=== PATIENT | male | born 1980 | race Caucasian/White ===

== ENCOUNTER 2020-06-04 16:55 | Emergency (ER) | payer BC, SELFPAY ==
[2020-06-04 17:15] VITALS: BP 116/85; PULSE 62; RESP 16; TEMP 36.4; O2SAT 100
--- NOTE | 2020-06-04 17:36 | ED.GENADULT ---
HPI - General Adult General Chief complaint: Shortness of Breath/Dyspnea Stated complaint: Alergic Reaction Time Seen by Provider: 06/04/20 17:36 Source: patient and RN notes reviewed Mode of arrival: ambulatory Limitations: no limitations History of Present Illness HPI narrative: 39-year-old male presents with complaints of asthma problems related to cat allergy for the past 2 months. Donell reports 3 months he obtained a cat for his children and initially he had no problems but over the past 2 months the cat dander has been causing problems with his asthma. Symptoms increased today with increase intermittent wheezing, sneezing, watery and itchy eyes, shortness of breath and he ran out of medication. Albuterol inhaler with relief and Yasmin with some relief. Denies difficulty swallowing and edema. No facial swelling. Denies fever, headaches, myalgia, facial swelling, or tongue swelling. Denies chest pain, nausea, vomiting, dizziness, or lightheadedness. Tolerating po intake well. Remains active. The patient reports he have not been diagnosed with COVID-19. The patient reports he is not waiting for the results of a COVID-19 lab test. The patient reports he do not have chills, weakness, or fatigue. The patient reports he do not have a new or worsening cough. Denies chest pain. The patient reports he do not have any rhinorrhea, congestion, loss of taste, sore throat, abdominal pain, and diarrhea. Denies recent traveling. Denies concerns for COVID-19 or exposures been home with limited outdoor exposure except for essential household needs, work, and return home. At this time, patient is not suspected of having COVID-19. Some parts of this dictation were generated by voice recognition software and may contain typographical and/or grammatical inaccuracies. Related Data Allergies Allergy/AdvReac Type Severity Reaction Status Date / Time Penicillins Allergy Intermediate Swelling Verified 06/04/20 17:11 shellfish derived Allergy Unknown Hives Verified 06/04/20 17:05 cat dander Allergy Wheezing Verified 06/04/20 17:11 Review of Systems Review of Systems: Narrative: CONSTITUTIONAL: Denies fever, chills, sweats. EYES: Denies visual changes, redness, discharge. ENT: Denies rhinorrhea, congestion, sore throat, otalgia. Complains of intermittent sneezing, watery and itchy eyes. CARDIOVASCULAR: Denies chest pain, palpitations, edema. RESPIRATORY: Denies cough. Complains of intermittent wheezing, dyspnea. GASTROINTESTINAL: Denies abdominal pain, nausea, vomiting, diarrhea. GENITOURINARY: Denies dysuria, hematuria, abnormal discharge. SKIN: Denies rash or itching. Denies drainage. MUSCULOSKELETAL: Denies acute back pain, joint pain, or myalgia. NEUROLOGIC: Denies numbness or focal weakness. PSYCHIATRIC: Denies anxiety or depression. All systems reviewed & are unremarkable except as noted in HPI and below. [facility] Past Medical History Medical History Allergies Asthma Ex-smoker for more than 1 year Surgical History Surgical History (Updated 06/04/20 @ 18:01 by LES Casillas) History of tonsillectomy Family History Family History (Updated 06/04/20 @ 18:03 by LES Casillas) Father Heart disease History of CABG Mother Asthma Hypertension Social History Social History (Updated 06/04/20 @ 18:04 by LES Casillas) Smoking status: Former smoker Tobacco type: cigarettes Second hand tobacco smoke exposure: No Substance use: never Living arrangements: with family Additional living arrangements comments: spouse and children Occupation/Education: occupation Gender identity (if verbalized by the patient): Male Sexual Orientation (if Verbalized by the Patient): Straight or Heterosexual Comments At time of signature, agree with nurse past medical, surgical, social, and family history. There is relevant patient's past medical history pertinent to the presenting comp
== END 2020-06-04 17:53 | disposition home or self-care (01) ==
PROVIDERS: Emergency Provider Nurse Practitioner Family
DX: J45.901 Unspecified asthma with (acute) exacerbation (principal); Z87.891 Personal history of nicotine dependence
CPT/HCPCS: 99213; G0463

== ENCOUNTER 2021-12-25 09:39 | Emergency (ER) | payer BC, SELFPAY ==
[2021-12-25 09:49] VITALS: BP 123/87; PULSE 76; RESP 16; TEMP 36.1; O2SAT 99
--- NOTE | 2021-12-25 10:12 | ED.HA ---
HPI - Headache General Chief Complaint: Headache Stated Complaint: Migraine Time Seen by Provider: 12/25/21 10:12 Source: patient, RN notes reviewed and old records reviewed Mode of arrival: ambulatory Limitations: no limitations History of Present Illness HPI Narrative: 41 year old male who presents to [facility] with complaints of having migraine headache for the past 2 weeks. Patient states that he has had migraine headaches since he was a child and they have increased in the past 2 months. He reports that he has been taking Ibuprofen and Tylenol daily and he has smoked marijuana which does seem to help his headache pain. Patient denies any sinus pain or nasal congestion or drainage. He reports that his pain is in left anabaptist, behind his left eye and it goes around to the back of his head at times with some nausea at times but no emesis. He states that he has some sensitivity to light but mainly sensitivity is to sound. 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 MD elicited complaint: migraine Pertinent past history: migraines Onset (ago): week(s) (2) Pain scale (0-10): 3 Treatments prior to arrival: acetaminophen and ibuprofen Related Data Allergies Allergy/AdvReac Type Severity Reaction Status Date / Time cat dander Allergy Severe Wheezing Verified 12/25/21 09:41 Penicillins Allergy Intermediate Swelling Verified 12/25/21 09:41 shellfish derived Allergy Unknown Hives Verified 12/25/21 09:41 Review of Systems Review of Systems: CONSTITUTIONAL: Denies fever, chills, or sweats. EYES: Denies visual changes, redness, or discharge. ENT: Denies rhinorrhea, congestion, sore throat, or otalgia. CARDIOVASCULAR: Denies chest pain, palpitations, or edema. RESPIRATORY: Denies cough or dyspnea. GASTROINTESTINAL: Denies abdominal pain,some nausea, denies any vomiting, or diarrhea. GENITOURINARY: Denies dysuria or hematuria. SKIN: Denies rash or itching. MUSCULOSKELETAL: Denies back pain, joint pain, or myalgia. NEUROLOGIC: Positive for headache,left anabaptist, behind left eye and radiation of pain to back of head with some photosphobia and sensitivity to sound.denies any numbness, or weakness. PSYCHIATRIC: Denies anxiety or depression. All systems reviewed & are unremarkable except as noted in HPI and below PMFSH Past Medical History Medical History Allergies Asthma Ex-smoker for more than 1 year Hx of migraines Neck pain Surgical History Surgical History History of tonsillectomy Family History Family History Father Heart disease History of CABG Alcoholism Diabetes mellitus Depression Anxiety Mother Asthma Hypertension Diabetes mellitus Depression Anxiety Grandparent Heart disease Social History Social History Smoking status: Former smoker Tobacco type: cigarettes Second hand tobacco smoke exposure: No Alcohol intake: former Substance use: current Substance use type: marijuana Last use: Former opiate addict clean for 10 years Living arrangements: with family Additional living arrangements comments: spouse and children Gender identity (if verbalized by the patient): Male Sexual Orientation (if Verbalized by the Patient): Straight or Heterosexual Comments At time of signature, agree with nursing past medical, surgical, social and family history. There is no relevant family history pertinent to the presenting complaint Exam Narrative: GENERAL: Pale-appearing, well-nourished, and in no acute distress. HEAD: Normocephalic, atraumatic. EYES: PERRLA and EOMI.no nystagmus ENT: Nares clear, no rhinorrhea or epistaxis. Mucous membranes moist.TM's normal with good light reflex, throat pink with no le
== END 2021-12-25 10:44 | disposition home or self-care (01) ==
PROVIDERS: Emergency Provider Registered Nurse
DX: G43.019 Migraine without aura, intractable, without status migrainosus (principal); Z87.891 Personal history of nicotine dependence; J45.909 Unspecified asthma, uncomplicated
CPT/HCPCS: 99213; G0463

== ENCOUNTER 2022-12-30 08:05 | Outpatient (CLI) | payer BC, SELFPAY ==
[2022-12-30 13:39] LABS: Basophils Percent Auto 0.8 % (0.2-1.2); Eosinophils Absolute Auto 0.2 K/mm3 (0-0.3); Eosinophils Percent Auto 4.1 % (0-4.4); Hematocrit 42.5 % (42.0-52.0); Hemoglobin 13.9 g/dL (14.0-18.0); Immature Granulocyte Absolute 0.01 K/mm3 (0.00-0.031); Immature Granulocyte Percent A 0.2 % (0-0.5); Lymphocytes Absolute Auto 2.21 K/mm3 (0.9-3.2); Lymphocytes Percent Auto 42.7 % (18.3-44.2); Mean Corpuscular HGB Conc 32.7 g/dl (32-36); Mean Corpuscular Hemoglobin 32.2 pg (26-34); Mean Corpuscular Volume 98.4 fl (80-100); Mean Platelet Volume 9.8 fl (7.4-10.4); Monocytes Absolute Auto 0.5 K/mm3 (0.1-0.6); Monocytes Percent Auto 9.5 % (2.6-8.5); Neutrophils Absolute Auto 2.2 K/mm3 (1.3-6.7); Neutrophils Percent Auto 42.7 % (45.5-73.1); Nucleated Red Blood Cells Absolute Auto 0.1 K/mm3 (0.0-0.012); Nucleated Red Blood Cells Perc 1.2 % (0.0-0.2); Platelet Count Result 277 k/mm3 (150-375); Red Blood Count 4.32 M/mm3 (4.6-6.20); Red Cell Distribution Width 12.8 % (11.5-14.5); White Blood Count 5.2 K/mm3 (4.5-10.0)
[2022-12-30 13:52] LABS: Alanine Aminotransferase 22 U/L (6-50); Albumin Level 4.6 g/dL (3.5-5.1); Alkaline Phosphatase 52 U/L (38-126); Anion Gap 7 mmol/L (8-16); Aspartate Amino Transferase 38 U/L (17-59); Bilirubin,Total 0.5 mg/dL (0.2-1.3); Blood Urea Nitrogen 23 mg/dL (9-20); Calcium 9.7 mg/dL (8.4-10.2); Carbon Dioxide 28 mmol/L (22-30); Chloride 106 mmol/L (98-107); Cholesterol 211 mg/dL (0-200); Estimated Glomerular Filt Rate > 60; Glucose 95 mg/dL (65-110); HDL Direct 42 mg/dL; Potassium 4.4 mmol/L (3.4-5.0); Sodium 141 mmol/L (137-145); Triglycerides 142 mg/dL (<150)
[2022-12-30 14:05] LABS: Vitamin D 25 Hydroxy 36.6 ng/mL
[2022-12-30 14:07] LABS: LDL Cholesterol Direct 114 mg/dL
[2022-12-30 14:25] LABS: Prostate Specific Antigen 0.6 ng/mL (< OR = 4.0)
[2022-12-30 17:38] LABS: Hemoglobin A1C 5.3 % (<5.7)
== END 2022-12-30 08:06 | disposition home or self-care (01) ==
LOC: ANHGOSHLAB 08:06
PROVIDERS: PCP Family Medicine; Visit Provider Nurse Practitioner Family
DX: Z00.00 Encounter for general adult medical examination without abnormal findings (principal); Z13.220 Encounter for screening for lipoid disorders; Z13.29 Encounter for screening for other suspected endocrine disorder; Z13.21 Encounter for screening for nutritional disorder; I10 Essential (primary) hypertension; Z13.1 Encounter for screening for diabetes mellitus; Z12.5 Encounter for screening for malignant neoplasm of prostate
CPT/HCPCS: 36415; 80053; 80061; 82306; 83036; 84153; 84443; 85025

== ENCOUNTER 2024-01-06 13:26 | Emergency (ER) | payer BC, SELFPAY ==
--- NOTE | ~2024-01-06 | XR_ITS ---
EXAMINATION: XR chest 2V 01/06/2024 13:56 INDICATION: Nonproductive cough. Smoker. PROCEDURE: 2 view chest COMPARISON: No prior studies for comparison. FINDINGS: The lungs are clear. The cardiomediastinal silhouette is within normal limits. There are no pleural effusions. There is no pneumothorax suspected. IMPRESSION: 1: NO ACUTE CARDIOPULMONARY DISEASE. Reviewed, dictated and finalized at location B.
--- NOTE | 2024-01-06 13:32 | ED.URI ---
HPI - URI/Sore Throat General Chief Complaint: Upper Respiratory Infection Stated Complaint: Sinus Time Seen by Provider: 01/06/24 13:32 Source: patient, RN notes reviewed and old records reviewed Mode of arrival: ambulatory Limitations: no limitations History of Present Illness HPI Narrative: Patient presents with complaints of sinus pain and congestion, bilateral ear pain, chest congestion with productive cough and mild body aches. He reports that symptoms have been present for about 2 weeks. He states that at this point the productive cough is the worst of his symptoms. He reports that he is more tired than normal, has been using his albuterol inhaler more than normal. Related Data Allergies Allergy/AdvReac Type Severity Reaction Status Date / Time cat dander Allergy Severe Wheezing Verified 01/06/24 13:30 Penicillins Allergy Intermediate Swelling Verified 01/06/24 13:30 shellfish derived Allergy Unknown Hives Verified 01/06/24 13:30 Review of Systems Review of Systems: All systems reviewed & are unremarkable except as noted in HPI and below Constitutional: Constitutional: Reports as per HPI, Reports no additional constitutional complaints and Reports fatigue ENT: Reports system reviewed and no additional complaints, except as documented, Reports as per HPI, Reports otalgia, Reports nasal discharge, Reports nasal obstruction, Reports sinus pain and Reports sinus pressure Cardiovascular: Cardiovascular: Reports as per HPI and Reports no additional cardiovascular complaints Respiratory: Respiratory: Reports as per HPI, Reports no additional respiratory complaints, Reports change in phlegm color, Reports chest congestion and Reports pain with cough Gastrointestinal: Gastrointestinal: Reports no additional gastrointestinal complaints Musculoskeletal: Musculoskeletal: Reports myalgias PMFSH Past Medical History Medical History Allergies Anxiety Asthma Ex-smoker for more than 1 year Hx of migraines Neck pain Sinus infection Surgical History Surgical History History of tonsillectomy Family History Family History Father Heart disease History of CABG Alcoholism Diabetes mellitus Depression Anxiety Mother Asthma Hypertension Diabetes mellitus Depression Anxiety Grandparent Heart disease Social History Social History Smoking packs per day: 0.25 Smoking cigarettes per day: 5.0 Years smoked: 25 Smoking pack-years: 6.25 Smoking status: Current some day smoker Tobacco type: cigarettes Second hand tobacco smoke exposure: No Alcohol intake: current Alcohol use details: only special occasion Substance use: current Substance use type: marijuana Last use: Former opiate addict clean for 10 plus years Lack of Transportation: No Lack of Food: Never True Current Housing: I Have Housing Concerned About Future Housing: No Difficulty Paying Gas/Electric Bills: No Difficulty Paying for Meds: No Currently Unemployed: No Education: High School Diploma/GED Difficulty w/ Childcare or Family Care: No Living arrangements: with family Additional living arrangements comments: spouse and children Occupation/Education: occupation Gender identity (if verbalized by the patient): Male Sexual Orientation (if Verbalized by the Patient): Straight or Heterosexual Comments At the time of my signature, I reviewed and agree with the nursing past medical, surgical, social, and family history. There is no relevant family history pertinent to the patient complaint. Exam Const: General: cooperative, no acute distress, alert and awake Orientation/consciousness: oriented to person, oriented to place and oriented to time HENMT: Head: normal to inspection E
[2024-01-06 13:34] VITALS: BP 125/94; PULSE 95; RESP 16; TEMP 37.3; O2SAT 99
== END 2024-01-06 14:44 | disposition home or self-care (01) ==
PROVIDERS: Emergency Provider Nurse Practitioner Family; PCP Family Medicine
DX: J01.00 Acute maxillary sinusitis, unspecified (principal); F17.210 Nicotine dependence, cigarettes, uncomplicated; J45.909 Unspecified asthma, uncomplicated
CPT/HCPCS: 71046; 99213; G0463